=== PATIENT | female | born 1975 | race Caucasian/White ===

== ENCOUNTER → 2017-08-02 | Outpatient (CLI) | payer OTHER | LOC: FIMAGING 13:14 | PROVIDERS: ATTEND Nurse Practitioner Women's Health | DX: Z12.31 Encounter for screening mammogram for malignant neoplasm of breast (principal) ==

== ENCOUNTER 2018-04-18 09:26 | Emergency (ER) | payer OTHER ==
[2018-04-18 10:16] VITALS: BP 95/60
--- NOTE | 2018-04-18 10:20 | EDPHY ---
H & P Stated Complaint: CHEST PAIN STARTED YESTERDAY Time Seen by Provider: 04/18/18 09:28 HPI/ROS: CHIEF COMPLAINT: Right lateral chest discomfort, pleuritic in nature. HISTORY OF PRESENT ILLNESS: This is a 42-year-old female who is in prior good health. While at home yesterday afternoon she started noticing a general discomfort in the right lateral chest wall that was painful with deep breathing. It did not occur at a single particular sentinel event or activity. It was not associated with any nausea vomiting or diarrhea or shortness of breath but it was nonetheless worse with taking deep breath. She has had no fever. There has been no antecedent troubles with decreased exercise tolerance. It was not related to activity. She cannot recall any undue straining or injury to the area. P: Worse with deep breathing Q: Achy R: Right lateral chest lateral to the breast, without radiation to the shoulder blade abdomen or central chest S: Mild T: Onset yesterday afternoon approximately 4-5 p.m. And persistent ever since Cardiac Risk Factors: DM: No HTN: No High Chol: No Smoking: No Family History: No Obesity: No PE/DVT risk factors Prior DVT/PE: No Immobilization: No Splint/Cast: No Surgery, recently: No Family history of hypercoaguable syndrome: No Unilateral leg swelling: No Obesity: No Known Aortic aneurysm No Aortic Valve disease No Family Hx of aortic dieseae No Collage vascular disaase: No AoricReurg Murur No Aoricintrumenttin rcent No REVIW F YSTEMS: Costiutional: No fever, no chils.Eys: No ishare ENT: No sore throa. Cardiovascuar N chest pain, no palpitations. Rspraory: N cugh shortness of breath, r hezing. Gstoinestinal: No nausea vomiting or diarrhea. No abdominal pain. Genitourinary: No hematuria or frequency. Musculoskeletal: No back pain. Skin: No rashes. Neurological: No headache. A 10 system review of systems was performed and is negative except for the noted findings in the HPI. Source: Patient Exam Limitations: No limitations - Medical/Surgical History Hx Asthma: No Hx Chronic Respiratory Disease: No Hx Diabetes: No Hx Cardiac Disease: No Hx Renal Disease: No Hx Cirrhosis: No Hx Alcoholism: No Hx HIV/AIDS: No Hx Splenectomy or Spleen Trauma: No Other PMH: L FOOT, LAPEROSCOPY - Social History Smoking Status: Former smoker Alcohol Use: None Drug Use: None - Physical Exam Exam: General Appearance: Alert, no distress. Afebrile. Normal phonation. No respiratory distress. Thin. Eyes: Pupils equal and round no pallor or injection. No icterus ENT, Mouth: Mucous membranes moist Pharynx without erythema or exudate. TM Clear. Neck: No adenopathy. Supple. No JVD. Trachea in midline. Respiratory: There are no retractions, lungs are clear to auscultation. No rub. Chest wall: Nontender to palpation. No crepitus. Cardiovascular: Regular rate and rhythm, without murmur. Abdomen: Soft and nontender, no masses, bowel sounds normal. Femoral pulses equal. Neurological: Ox3. No motor weakness. Sensation intact. Gait nl. Skin: Warm and dry, no rashes. Musculoskeletal: No joint swelling. Extremities: No edema. Homans sign negative. No cords. Psychiatric: Normal affect. Patient is oriented X 3. There is no agitation Constitutional: Initial Vital Signs Temperature (C) 36.8 C 04/18/18 09:29 Heart Rate 58 L 04/18/18 09:29 Respiratory Rate 18 04/18/18 09:29 Blood Pressure 102/78 04/18/18 09:29 O2 Sat (%) 98 04/18/18 09:29 O2 Delivery Mode Room Air Allergies/Adverse Reactions: Penicillins Allergy (Verified 04/18/18 09:30) sumatriptan [From Imitrex] Allergy (Verified 04/18/18 09:30) sumatriptan succinate [From Imitrex] Allergy (Verified 04/18/18 09:30) Home Medications: Medication Instructions Recorded NK [No Known Home Meds] 12/09/15 Medical Decision Making - Diagnostics EKG Interpretation: EKG. An to me contemporaneously rate of 56. QTC of 400. Normal ST segments. Normal T-waves. No signs of ischemia, normal Ekg. Imaging Results: Imaging Impressions Chest X-Ray 04/18/18 09:48 Impression: 1. Mild bronchitis. 2. No focal pneumonia. ED Course/Re-evaluation: Chest x-ray was normal, no signs of pneumothorax EKG on presentation showed normal in its rhythm without ischemic changes. Laboratory studies include a negative troponin and negative D-dimer I met with the patient as the findings. Her heart score is a perhaps 1, thus she is a low risk and will be discharged home to follow up with her family doctor. We have had a discussion regarding the likely morales, though not 0 , of MACE. Differential Diagnosis: Differential diagnosis includes but is not limited to the following: ACS, myocardial infarction, pneumothorax, pleurisy, pulmonary embolus, CHF, Pneumonia, bronchospasm, Asthma, anxiety, muscle strain, pleurodynia, pleurisy. - Data Points Laboratory Results: 04/18/18 09:57 POC Troponin I 0.00 ng/mL ng/mL (0.00-0.08) Point of Care Test Results: CBC CBC Collection Date 04/18/18 CBC Collection Time 09:55 WBC 3.4 RBC 4.58 HGB 14.3 HCT 40.0 PLT 185 Neut # 2.1 Neut 62.8 LYMPH # 1.1 LYMPH 32.0 Other WBC # 0.2 Other WBC 5.2 MCV 87.3 Chemistry 04/18/18 09:57 POC Troponin I 0.00 ng/mL ng/mL (0.00-0.08) D-Dimer D-Dimer Collection Date 04/18/18 D-Dimer Collection Time 09:55 D-Dimer (ng/ml) 100 Departure - Departure Disposition: Home, Routine, Self-Care Clinical Impression: Pleurisy Chest pain Qualifiers: Chest pain type: chest pain on breathing Qualified Code(s): R07.1 - Chest pain on breathing Condition: Good Instructions: Pleurisy (ED) Additional Instructions: Take an anti-inflammatory such as ibuprofen 600 mg three times daily for the next 10 days. On top of that, if the pain is so bad that she can't sleep such as last night, then take Tylenol along with it. It is a safe combination. Avoid straining the chest wall or heavy lifting. Follow-up with her family physician in 5-7 days if not completely resolved. Sooner if worse. Return specifically if he develops fever or shortness of breath Referrals: Faye Magallon MD [Primary Care Provider] - As per Instructions
--- NOTE | 2018-04-19 16:25 | CPEKG ---
Test Reason : Chest Pain Blood Pressure : / mmHG Vent. Rate : 056 BPM Atrial Rate : 056 BPM P-R Int : 151 ms QRS Dur : 091 ms QT Int : 414 ms P-R-T Axes : 076 049 068 degrees QTc Int : 400 ms Sinus rhythm Probable left atrial enlargement Confirmed by Milo Patel ([id number]) on 04/19/2018 4:25:32 PM Referred By: Confirmed By:Milo Patel
== END 2018-04-18 10:28 | disposition home or self-care (01) ==
LOC: CED 09:26
DX: R09.1 Pleurisy (principal); Z87.891 Personal history of nicotine dependence
CPT/HCPCS: 71046-PO; 84484-PO